=== PATIENT | female | born 1940 | race Caucasian/White ===

== ENCOUNTER → 2017-05-26 | Outpatient (CLI) | payer MEDICARE, BC ==
[~2017-05-26] MED LIST: CALCIUM 600 W/V1 TAB PO; CALCIUM CARBON500 M1 PO; CALCIUM600 M2 PO; CEFANEX500 MG PO; COMPLEXED POTAS99 MG PO; COUMADIN 5MG5 MG/TAB PO; COUMADIN 6MG6 MG/TAB PO; DIOVAN HCT 12.51 TAB PO; DIOVAN/HCT 12.51 TAB PO; DIOVAN160 MG PO; DOCU SOFT PO; EXCEDRIN P.M. T1 TAB PO; FERROUS SU325 MG/TAB PO; FLAXSEED OIL1000 MG PO; FOLIC ACID 40400 MCG PO; HCTZ PO; IBUPROFEN800 MG PO; KLOR-CON 1010 MEQ PO; LEXAPRO 10MG10 MG PO; LIPITOR 10MG10 MG PO; LIPITOR PO; LOPRESSOR 225 MG/TAB PO; MELATONIN PO; PAXIL CR 12.512.5 MG PO; POTASSIUM '99'620 MG PO; PREMARIN .3MG0.3 MG PO; PREMARIN 0.3MG0.3 MG PO; TRAMADOL50 MG PO; VITAMIN C BUFF500 MG PO; VITAMIN D PO; VITAMIN D3400 IU PO
== END ==
LOC: MC.RAD 11:17
DX: Z12.31 Encounter for screening mammogram for malignant neoplasm of breast (principal)

== ENCOUNTER → 2018-07-21 | Outpatient (CLI) | payer MEDICARE, BC | LOC: MC.RAD 06-15 10:20 | DX: Z12.31 Encounter for screening mammogram for malignant neoplasm of breast (principal) ==

== ENCOUNTER → 2019-08-05 | Outpatient (CLI) | payer MEDICARE, BC | LOC: MC.RAD 11:03 | DX: Z12.31 Encounter for screening mammogram for malignant neoplasm of breast (principal) ==

== ENCOUNTER → 2021-12-14 | Outpatient (CLI) | payer MEDICARE, BC | LOC: MC.RAD 11:03 | DX: Z12.31 Encounter for screening mammogram for malignant neoplasm of breast (principal) ==